=== PATIENT | male | born 2000 | race Caucasian/White ===

== ENCOUNTER 2021-08-13 19:20 | Emergency (ER) | payer BC ==
[~2021-08-13] VITALS: Ht 182.9 cm; Wt 84.1 kg
[2021-08-13 19:28] VITALS: TEMP 98.4
[2021-08-13 21:10] VITALS: BP 107/69; PULSE 70
== END 2021-08-13 21:10 | disposition home or self-care (01) ==
LOC: COL.ER 19:20
DX: Z20.3 Contact with and (suspected) exposure to rabies (principal)